=== PATIENT | male | born 1990 | race Caucasian/White ===

== ENCOUNTER 2018-10-29 22:28 | Emergency (ER) | payer OTHER ==
--- NOTE | 2018-10-29 22:53 | ER Document Report ---
ED Allergic Reaction - General Chief Complaint: Allergic Reaction Stated Complaint: POSSIBLE ALLERGIC REACTION Time Seen by Provider: 10/29/18 22:35 Notes: Patient is a 28-year-old male that comes to the emergency department for chief complaint of allergic reaction. Patient was bitten by ants while working outside in the grass, he had multiple bites on the feet, he states he started noticing swelling of the foot, ignored it, but then he broke out into a rash and started swelling on his face. He also reports slightly difficult breathing and sensation of swelling in the throat. He called EMS, he was given first 0.5 mg and then 0.3 mg IM of epinephrine, 125 mg of Solu-Medrol, 150 mg of Zantac, and patient took 50 mg of Benadryl before EMS arrived. Patient states she feels jittery but that the swelling of his face has resolved, rash has resolved, throat tightness and sensation of shortness of breath have resolved. Patient denies any current symptoms. Patient has had 2 different episodes of allergic reactions to bites. He takes no daily medications, he is active duty, denies past medical history otherwise. Tetanus up-to-date. - Related Data Allergies/Adverse Reactions: fire ant Allergy (Verified 10/29/18 23:30) Past Medical History - General Information source: Patient - Social History Smoking Status: Never Smoker Frequency of alcohol use: None Drug Abuse: None Lives with: Family Family History: Reviewed & Not Pertinent - Medical History Medical History: Negative Surgical Hx: Negative - Immunizations Immunizations up to date: Yes Hx Diphtheria, Pertussis, Tetanus Vaccination: Yes Review of Systems - Review of Systems Constitutional: No symptoms reported EENT: See HPI Cardiovascular: No symptoms reported Respiratory: See HPI Gastrointestinal: No symptoms reported Genitourinary: No symptoms reported Male Genitourinary: No symptoms reported Musculoskeletal: No symptoms reported Skin: See HPI Hematologic/Lymphatic: No symptoms reported Neurological/Psychological: No symptoms reported Physical Exam - Vital signs Vitals: Temp Pulse Resp BP Pulse Ox 98.1 F 89 22 H 151/72 H 100 10/29/18 22:28 10/29/18 22:28 10/29/18 22:28 10/29/18 22:28 10/29/18 22:28 - Notes Notes: GENERAL: Alert, interacts well. No acute distress. HEAD: Normocephalic, atraumatic. EYES: Pupils equal, round, and reactive to light. Extraocular movements intact. ENT: Oral mucosa moist, tongue midline. Oropharynx unremarkable. Airway patent. Nares patent, no nasal septal hematoma. NECK: Full range of motion. Supple. Trachea midline. LUNGS: Clear to auscultation bilaterally, no wheezes, rales, or rhonchi. No res piratory distress. HEART: Regular rate and rhythm. No murmur ABDOMEN: Soft, non-tender. Non-distended. Bowel sounds present in all 4 quadrants. GENITOURINARY: Deferred EXTREMITIES: Moves all 4 extremities spontaneously. No edema, normal radial and dorsalis pedis pulses bilaterally. No cyanosis. BACK: no cervical, thoracic, lumbar midline tenderness. No saddle anesthesia, normal distal neurovascular exam. Moves all extremities in full range of motion. NEUROLOGICAL: Alert and oriented x3. Normal speech. Cranial nerves II through XII grossly intact. PSYCH: Normal affect, normal mood. SKIN: Scattered ant bites over the feet/legs Course - Re-evaluation Re-evalutation: On my evaluation patient symptoms have resolved. He is slightly jittery but otherwise well-appearing. He has already been fully medicated. Patient will be monitored and rechecked frequently. On initial recheck patient sleeping but easily aroused. No return of symptoms. We will continue to monitor. Patient reevaluated again, still has not had any symptoms, is requesting to go home. He will be monitored for approximately 4 hours and then discharged with medications and return precautions. Patient reevaluated again, no new symptoms have developed. Discharged with return precautions which were discussed in detail. Patient and state understanding and agreement with plan. - Vital Signs Vital signs: Temp Pulse Resp BP Pulse Ox 98 F 89 17 116/76 98 10/30/18 02:27 10/29/18 22:28 10/30/18 02:01 10/30/18 02:01 10/30/18 02:01 Discharge - Discharge Clinical Impression: Allergy to ant bite Anaphylaxis Qualifiers: Encounter type: initial encounter Qualified Code(s): T78.2XXA - Anaphylactic shock, unspecified, initial encounter Condition: Stable Disposition: HOME, SELF-CARE Additional Instructions: You have been treated for an anaphylactic allergic reaction that occurred tonight. Take the prednisone as prescribed to completion. Take the cetirizine as prescribed daily for the next week. Follow-up with primary care. In the event of return symptoms or severe allergic reaction symptoms (swelling of the face, lips, tongue, throat, difficulty breathing, etc), take the epinephrine pen and return immediately to the emergency department. Prescriptions: Cetirizine HCl [24Hour Allergy] 10 mg PO DAILY #30 tablet Epinephrine [Epipen 2-Sabas] 0.3 mg IM ASDIR PRN #1 packet PRN Reason: Prednisone [Deltasone 10 mg Tablet] 10 mg PO ASDIR PRN #21 tablet PRN Reason:
[2018-10-30 02:15] VITALS: BP 116/76
== END 2018-10-30 02:24 | disposition home or self-care (01) ==
LOC: ER 22:28
DX: T63.421A Toxic effect of venom of ants, accidental (unintentional), initial encounter (principal); T78.2XXA Anaphylactic shock, unspecified, initial encounter; X58.XXXA Exposure to other specified factors, initial encounter
CPT/HCPCS: 99283